=== PATIENT | male | born 1950 | race Caucasian/White ===

== ENCOUNTER 2018-10-02 22:46 | Observation (INO) | payer MEDICARE, OTHER ==
[~2018-10-02] VITALS: Ht 188 cm; Wt 97.2 kg
[~2018-10-02 22:46] MED LIST: ANTIVERT PO; CARAFATE1 GM PO; GINKOBA40 MG PO; LIPITOR80 MG PO; ZOFRAN ODT4 MG PO
--- NOTE | 2018-10-02 23:05 | NUR ---
PT RELATED NO CHEST PAIN AT THIS TIME.
--- NOTE | 2018-10-02 23:08 | NUR ---
PORT XRAY AT BEDSIDE.
[2018-10-02] MEDS ORDERED: OMEPRAZOLE10 MG PO (23:09)
[2018-10-02] MEDS ORDERED: ASPIRIN CHEWABL81 MG PO (23:10)
--- NOTE | 2018-10-02 23:15 | NUR ---
SPOUSE AT BEDSIDE.
[2018-10-02 23:16] LABS: HEMOGLOBIN 13.6 g/dl (14.0-18.0); IMMATURE GRANULOCYTES 0.1 % (0.0-5.0); MEAN CELL VOLUME 89.7 fL CALC (80.0-100.0); MEAN CORPUSCULAR HGB 30.5 pG CALC (26.0-32.0); NEUT# 3.77 thou/uL (1.82-7.42); RED BLOOD COUNT 4.46 mill/uL (4.70-6.10)
[2018-10-02 23:30] LABS: ALBUMIN 4.5 g/dL (3.2-5.0); ALKALINE PHOSPHATASE 107 u/l (38-126); AMYLASE 83 u/l (30-110); ANION GAP 15 (6-22 (CALC)); BILIRUBIN, TOTAL 0.8 mg/dL (0.0-1.4); BUN 22 mg/dL (8-23); BUN/CREATININE RATIO 17 (12-20 (CALC)); CARBON DIOXIDE 25 mmol/l (22-30); CHLORIDE 106 mmol/l (95-108); CREATININE 1.3 mg/dL (0.7-1.3); GFR 55 ML/MIN (>=60 (CALC)); GFR FOR AFR.AMER. > 60 ML/MIN (>=60 (CALC)); LIPASE 130 u/l (23-300); SGOT/AST 46 u/l (19-48); SODIUM 141 mmol/l (137-146); TOTAL PROTEIN 7.2 g/dL (6.3-8.2)
--- NOTE | 2018-10-02 23:33 | NUR ---
PT REFUSED TORADOL, DR ALICEA INFORMED.
[2018-10-02 23:42] LABS: MYOGLOBIN 38 ng/mL (0 - 121)
--- NOTE | 2018-10-03 00:10 | NUR ---
PT WITH NO COMPLAINTS OF CHEST PAIN, UNLESS HE PUSHES HARD TO CHEST. CALL LOVING IN REACH.
--- NOTE | 2018-10-03 00:18 | NUR ---
DR ALICEA AT BEDSIDE.
--- NOTE | 2018-10-03 00:46 | NUR ---
REPORT CALLED TO ICU, NURSE CLARISSA.
--- NOTE | 2018-10-03 00:55 | NUR ---
PT TO ICU 6 ON MONITOR WITH RN. PT COND STABLE. PTS ONLY BELONGINGS, T-SHIRT, SHORTS WITH PT.
--- NOTE | 2018-10-03 02:16 | NUR ---
MALE PATIENT IS RECEIVED FROM EMERGENCY ROOM, ALERT AND ORIENTED TIMES THREE, STABLE VITAL SIGNS. CLEAR LUNGS IN THEIR BASES, SKIN IS INTACT. LAST BM YESTERDAY. COMFORT AND EDUCATIONS IS PROVIDED.
[2018-10-03 07:30] VITALS: BP 123/81
--- NOTE | 2018-10-03 07:30 | NUR ---
ASSESSMENT IS COMPLETED: IV SITE ISF REE FROM REDNESS OR EDEMA. HR IS REG, PULSES ARE STRONG X4,ABD IS SOFT WITH ACTIVE BS. BREATH SOUNDS ARE CLEAR, BILATERALLY. CALL LOVING WITHIN REACH. CONTINUE TO OSBERVE AND MONITOR.
--- NOTE | 2018-10-03 09:21 | NUR ---
PT ALREADY HAD PNEUMONIA VACCINE
[2018-10-03 09:26] LABS: ANION GAP 17 (6-22 (CALC)); BUN 20 mg/dL (8-23); BUN/CREATININE RATIO 19 (12-20 (CALC)); CARBON DIOXIDE 21 mmol/l (22-30); CHLORIDE 108 mmol/l (95-108); CREATININE 1.1 mg/dL (0.7-1.3); GFR > 60 ML/MIN (>=60 (CALC)); GFR FOR AFR.AMER. > 60 ML/MIN (>=60 (CALC)); POTASSIUM 4.3 mmol/l (3.5-5.1); SODIUM 142 mmol/l (137-146)
[2018-10-03 09:27] LABS: CHOLESTEROL HDL RATIO 3.8 (<4.4 (CALC))
--- NOTE | 2018-10-03 11:25 | NUR ---
PT IS RELAXING AND VISITING WITH FAMILY. NO DISTRESS NOTED. IV SITE IS FREE FROM REDNESS OR EDEMA.
--- NOTE | 2018-10-03 13:42 | NUR ---
IV SITE DISCONTINEUD CATHETER INTACT. NO REDNESS OR EDEMA. DISCHARGE INSTRUCTIONS GIVEN TO FAMILY AND PT. VERBALIZED UNDERSTANDING. DR ALEXANDER IN THE ROOM WANTING PT TO SEE DR. RODRIGES, WILL ATTEMPT TO CALL IN THE AM.
--- NOTE | 2018-10-04 08:21 | NUR ---
called dr. agarwal's office received an appointment for 11/01/18 at 0930 am. called pt to inform him. verbalized understanding.
== END 2018-10-03 13:45 | disposition home or self-care (01) ==
LOC: ED 22:46 → ED-I 10-03 00:17 → ED 10-03 00:32 → ICU 10-03 00:33
PROVIDERS: Family Medicine; Nurse Practitioner Family; ADMIT Internal Medicine; ATTEND Internal Medicine
DX: R07.89 Other chest pain (principal); I25.10 Atherosclerotic heart disease of native coronary artery without angina pectoris; F41.9 Anxiety disorder, unspecified; M19.90 Unspecified osteoarthritis, unspecified site; Z95.5 Presence of coronary angioplasty implant and graft; R42 Dizziness and giddiness; R53.1 Weakness